=== PATIENT | female | born 1985 | race Two or more races ===

== ENCOUNTER 2020-11-20 07:41 | Emergency (ER) | payer OTHER ==
[~2020-11-20] VITALS: Ht 160 cm; Wt 96.6 kg
[2020-11-20] MEDS ORDERED: AMOX-CLAV 875-1 EACH PO (09:10)
== END 2020-11-20 09:16 | disposition home or self-care (01) ==
LOC: ER 07:41
DX: S81.822A Laceration with foreign body, left lower leg, initial encounter (principal); W45.8XXA Other foreign body or object entering through skin, initial encounter; Y93.01 Activity, walking, marching and hiking; Y92.89 Other specified places as the place of occurrence of the external cause; Y99.8 Other external cause status